=== PATIENT | male | born 2000 | race Caucasian/White ===

== ENCOUNTER 2020-09-04 09:08 | Emergency (ER) | payer OTHER ==
[~2020-09-04] VITALS: Ht 205.7 cm; Wt 102.3 kg
[2020-09-04 09:11] VITALS: BP 114/78; Ht 205.7 cm; Wt 102.3 kg
[2020-09-04] MEDS ORDERED: PROAIR HFA8.5 G1 INH (09:32)
== END 2020-09-04 09:45 | disposition home or self-care (01) ==
LOC: D.ER 09:08
DX: J45.901 Unspecified asthma with (acute) exacerbation (principal)